=== PATIENT | male | born 1960 | race Caucasian/White ===

== ENCOUNTER → 2018-02-25 | Outpatient (CLI) | payer MEDICARE, OTHER ==
--- NOTE | 2018-02-26 07:35 | RADIOLOGY REPORT (SQ) ---
EXAM DESCRIPTION: MRI LUMBAR SPINE WITHOUT COMPLETED DATE/TIME: 02/25/2018 4:19 pm REASON FOR STUDY: M54.5 M54.2 CERVICALGIA M54.5 LOW BACK PAIN M54.31 SCIATICA, RIGHT SIDE COMPARISON: None. TECHNIQUE: Sagittal and Axial imaging includes T1, T2, STIR and gradient echo sequences. Coronal T2/ HASTE imaging. LIMITATIONS: None. FINDINGS: VISUALIZED UPPER ABDOMEN: Limited evaluation. No acute or suspicious findings suggested. SEGMENTATION: No transitional anatomy. The lowest well-developed disc space is labeled L5-S1. ALIGNMENT: Grade 2 listhesis at L5-S1. Mild broad convex right scoliosis. VERTEBRAE: Intact. BONE MARROW: Generally slightly diminished marrow signal throughout, nonspecific. No focal lesions. Mild fatty chronic endplate changes and irregularities at several levels. DISC SIGNAL: Multilevel diminished disc signal and height. Most pronounced at L5-S1. POSTERIOR ELEMENTS: Bilateral L5 pars defects. HARDWARE: None in the spine. CORD AND CONUS: Normal in size and signal intensity. Conus at the appropriate level. SOFT TISSUES: No aortic aneurysm seen. No bulky retroperitoneal adenopathy or mass. No paraspinal mas s or fluid. L1-L2: No significant spinal stenosis or exit foraminal stenosis. L2-L3: Mild left lateral recess and foraminal encroachment. L3-L4: No significant spinal stenosis or exit foraminal stenosis. L4-L5: No significant spinal stenosis or exit foraminal stenosis. L5-S1: Marked bilateral foraminal stenosis. LOWER THORACIC: Incompletely imaged. No stenosis seen. SACRUM: Visualized upper sacrum intact. OTHER: No other significant findings. IMPRESSION: 1. Bilateral pars defects at L5. Associated grade 2 listhesis and foraminal stenosis b ilaterally. 2. No significant central stenosis. Spondylosis and mild scoliosis otherwise. TECHNICAL DOCUMENTATION: JOB ID: [id number] [employer]- All Rights Reserved Reading location - IP/workstation name: [email or web address]
--- NOTE | 2018-02-26 08:12 | RADIOLOGY REPORT (SQ) ---
EXAM DESCRIPTION: MRI CERVICAL SPINE WITHOUT COMPLETED DATE/TIME: 02/25/2018 4:19 pm REASON FOR STUDY: M54.5 LOW BACK PAIN M54.2 CERVICALGIA M54.31 SCIATICA, RIGHT SIDE [id number] M54.2 CERVICALGIA M54.5 LOW BACK PAIN M54.31 SCIATICA, RIGHT SIDE COMPARISON: None. TECHNIQUE: Sagittal and Axial imaging includes T1, T2, STIR and gradient echo sequences. LIMITATIONS: None. FINDINGS: ALIGNMENT: Normal. VERTEBRAE: Intact. BONE MARROW: Reactive endplate changes at C3-4. DISCS: Disc disease at several levels including disc osteophyte formation which is most pronounced at C3-4. Similar changes are also seen at C4-5 and C5-6. HARDWARE: None in the spine. CORD AND BASE OF BRAIN: Skullbase structures are generally intact. Patchy areas of abnormal signal w ithin the substance of the cord. Anteriorly at C2-3, dorsally at C4-5. Also patchy dorsal signal in the upper thoracic cord. Normal caliber cord. SOFT TISSUES: No soft tissue masses. C1-C2: No significant spinal stenosis. C2-C3: No significant spinal stenosis or exit foraminal stenosis. C3-C4: Disc osteophyte complex with right uncovertebral spurring. No mass effect on the cord. Up to moderate right foraminal stenosis. C4-C5: Mild disc osteophyte complex without central stenosis or mass effect on the cord. Bilateral m ild foraminal narrowing. C5-C6: Disc osteophyte complex with mild left foraminal narrowing. No central stenosis or mass effec t on the cord. C6-C7: No significant spinal stenosis or exit foraminal stenosis. C7-T1: No significant spinal stenosis or exit foraminal stenosis. UPPER THORACIC: As above. No stenosis. OTHER: No other significant finding. IMPRESSION: 1. Areas of abnormal signal within the cord without swelling or loss of cord volume. Mu ltifocal relatively short segment lesions are noted, ventral and dorsal cord. The appearance and dis tribution is in keeping with the patient's clinical diagnosis of multiple sclerosis. 2. Multilevel s pondylosis. No isaura cord compression or high-grade central stenosis. Noncritical foraminal narrowi ng as above. TECHNICAL DOCUMENTATION: JOB ID: [id number] [id number]- All Rights Reserved Reading location - IP/workstation name: [email or web address]
== END ==
LOC: RAD 15:55
PROVIDERS: ATTEND Family Medicine
DX: M54.2 Cervicalgia (principal); M54.5 Low back pain; M54.31 Sciatica, right side; M43.06 Spondylolysis, lumbar region
CPT/HCPCS: 72141; 72148